=== PATIENT | female | born 1975 | race Caucasian/White ===

== ENCOUNTER 2018-12-29 14:15 | Emergency (ER) | payer SELFPAY ==
[2018-12-29] MEDS ORDERED: Ibuprofen 600 MG TAB ONE (15:50)
== END 2018-12-29 16:25 | disposition home or self-care (01) ==
LOC: MADERS 14:15
DX: B34.9 Viral infection, unspecified (principal)
CPT/HCPCS: 87081; 87430; 87804; 99283